=== PATIENT | female | born 1985 | race Two or more races ===

== ENCOUNTER → 2017-01-22 | Outpatient (CLI) | payer OTHER, MEDICAID ==
[~2017-01-22] VITALS: Ht 175.3 cm; Wt 136.5 kg
[~2017-01-22] MED LIST: PREN1TAB59 PO
--- NOTE | 2017-01-22 17:58 | DIREP ---
PROCEDURE:US BIOPHYSICAL PROFILE W/O NON STRESS COMPARISON:None. INDICATIONS:POST DATES FINDINGS: Breathing:Normal, 2. Movement:Normal, 2. Tone:Normal, 2. Fluid:Normal, 2. Summary Fetus Summary Estimated Weight:3863g Heart Rate:142 bpm Gestational Age (BPD):39 weeks, 0 days Gestational Age (HC):40 weeks, 0 days Gestational Age (AC):40 weeks, 2 days Gestational Age (FL):38 weeks, 1 day Amniotic Sac Amniotic Fluid Index:10.56 cm Pelvis and Uterus Cervix Length:3.89 cm EGA based on biometrics: 39 weeks 3 days Cervical Length: 3.9 cm ROSALIE: 10.6 cm Position: Cephalic Placental Location: Anterior Previa: None demonstrated. CONCLUSION: 1. Biophysical profile 05/20. 2. Single viable intrauterine gestation with biometrics corresponding to 39 week 3 day gestation. Dictated by: Jose Carrington M.D. on 01/22/2017 at 05:56 PM
== END | disposition home or self-care (01) ==
LOC: OPOB 16:42
PROVIDERS: ATTEND Hospitalist
DX: Z34.83 Encounter for supervision of other normal pregnancy, third trimester (principal); Z3A.39 39 weeks gestation of pregnancy
CPT/HCPCS: 59025; 76815; 76819

== ENCOUNTER → 2017-01-27 | Outpatient (CLI) | payer OTHER, MEDICAID ==
--- NOTE | 2017-01-27 13:17 | DIREP ---
PROCEDURE:US BIOPHYSICAL PROFILE W/O NON STRESS COMPARISON:[facility], , BIOPHYSICAL PROFILE W/O NON STRESS, 01/22/2017, 05:16 PM. INDICATIONS:O48.0 POST-TERM PRGE., O13.3 GESTATIONAL HTN THIRD TRIMESTER FINDINGS: Breathing:Normal, 2. Movement:Normal, 2. Tone:Normal, 2. Fluid:Normal, 2. NUMBER:Ann. POSITION:Cephalic. AMNIOTIC FLUID VOLUME:ROSALIE-12.0 cm. PLACENTA:Anterior. No evidence of previa. CERVIX:The cervix measures approximately 3.5 cm in length. The internal cervical os is closed. HEART RATE:131 beats per minute. BIPARIETAL DIAMETER:9.6 cm (39 weeks 3 days) HEAD CIRCUMFERENCE:34.5 cm (39 weeks 6 days) ABD CIRCUMFERENCE:37.0 cm (41 weeks 0 days) FEMUR LENGTH:7.6 cm (38 weeks 4 days) ESTIMATED WEIGHT:4002 g (8 lbs. 13 oz.) ULTRASOUND GA:39 weeks 5 days ULTRASOUND MELQUIADES:01/29/2017. anatomic survey was not performed. CONCLUSION: 1. Single intrauterine corresponding to an estimated gestational age of 39 weeks 5 days per biometrics. This does correlate well with the recent ultrasound, but does reflect a slight discrepancy from the reported clinical gestational age. The discrepancy is within the acceptable limits for normal variation. 2. Normal (8/8) biophysical profile. 3. Cephalic presentation. Anterior placenta. No evidence of previa. Normal ROSALIE. Dictated by: Horace Grubbs M.D. On 01/27/2017 at 01:16 PM
== END | disposition home or self-care (01) ==
LOC: RAD 11:37
PROVIDERS: ATTEND Hospitalist
DX: O48.0 Post-term pregnancy (principal); O13.3 Gestational [pregnancy-induced] hypertension without significant proteinuria, third trimester; Z3A.39 39 weeks gestation of pregnancy
CPT/HCPCS: 59025; 76815; 76819

== ENCOUNTER 2017-01-29 15:39 | Inpatient (IN) | payer OTHER, MEDICAID ==
[~2017-01-29] VITALS: Ht 172.7 cm; Wt 136.5 kg
[2017-01-29] MEDS ORDERED: BICITRA PO ONE (18:30)
[2017-01-29] MEDS ORDERED: XYLOCAINE PERINEUM SCH (18:30)
[2017-01-29 18:40] LABS: BASOPHIL % 0.3 % (0.0-0.2); EOSINOPHIL # 0.1 10^3/uL (0.0-0.2); EOSINOPHIL % 0.9 % (0.0-5.0); HEMATOCRIT 40.2 % (36.0-46.0); HEMOGLOBIN 13.9 g/dL (12.0-15.0); LYMPHOCYTES # 1.8 10^3/uL (1.0-4.8); LYMPHOCYTES % 14.3 % (24.0-44.0); MEAN CELL HGB 31.5 pg (26-34); MEAN CELL HGB CONCENTRATION 34.6 g/dL (33-37); MEAN CORP VOLUME 91.2 fL (78-100); MEAN PLATELET VOLUME 9.5 fL (7.8-11.0); MONOCYTES # 1.3 10^3/uL (0.3-0.8); MONOCYTES % 9.9 % (5.0-12.0); NEUTROPHIL # 9.5 10^3/uL (1.8-7.7); NEUTROPHILS % 74.2 % (41.0-85.0); RED CELL DISTRIBUTION WIDTH 12.9 % (11.5-14.5); WHITE BLOOD CELL 12.8 10^3/uL (4.5-11.0)
[2017-01-29] MEDS ORDERED: CERVIDIL VG STA (20:38)
[2017-01-30] MEDS ORDERED: ATARAX PO PRN (01:00)
[2017-01-30] MEDS ORDERED: LACTATED RINGERS 1,000 ML ONE (12:28)
[2017-01-30] MEDS ORDERED: LR/PITOCIN 500 ML IV ONE (12:28)
--- NOTE | 2017-01-30 13:59 | PCM.HP ---
OB - Chief Complaint & HPI Date of Admission: Date of Admission: Jan 29, 2017 at 15:39 Diagnosis This is a 31yo tall female EDC = 01/20/2017, with PNC with [facility], then subsequently (briefly) with Desiree Borrero LM, and now currently with Brenna Ty [facility], who was brought in for induction of labor last night at 41 2/ 7 weeks, with Cervidil. This is a patient who is comfortable in the midwifery model of care, not traditional Labor & Delivery. I was first introduced to this patient more than a week ago, when Brenna brought the patient to [facility] at 40 2/7 weeks on suspicion of pre-eclampsia (NST/BPP was performed). 24-hour urine was eventually performed, and it did not support the diagnosis of mild pre- eclampsia; the patient's later blood pressures at home, and currently here in the hospital, have been stable. Leyla was never placed on any anti- hypertensive medications. She decided she wanted to be induced yesterday, because she felt "something was wrong." FHR baseline has been reassuring here ( when the patient has allowed us to monitor her), and after 12 hours of Cervidil , the patient is having some contractions (which she is feeling). She is amenable to Pitocin if her contractions space out. She does not want me to perform amniotomy. Chief Complaint/History : 2 Para: 1 EDC: Jan 20, 2017 EGA: 41 3/7 Reason for admission: induction of labor Indication for induction: post dates (PT REQUEST) Admission Nurse Assessment Rev: Yes OB - History Hx of Present Care: Good Care Obstetrical Complications: None Medical Complications: None Other Concerns: The patient delivered a 9# female previously. Past Family/Social History * Past Medical, Surgical, Family and Obstetric Histories reviewed from chart. OB - Admission Exam Physical Exam HEENT: NCAT Lungs: Clear Abdomen: Gravid Extremities: Normal, Other (scars appreciated to right knee and right hand) Reflexes: Normal Cervical Dilatation: 1cm Effacement: 25% (30%) Station: -3 Membranes: Intact Heart Rate: 130's Accelerations: Accelerations Present Decelerations: No Decelerations Lens Edger Variability: Average (6-25) Contractions on Admission: None Intensity: Moderate (after Cervidil) Presentation: vtx OB - Assessment/Plan Assessment Assessment: induction of labor Plan Plan: Induction Induction Method: per Pitocin Protocol (Pt would feel more comfortable having the Pitocin start at 1mU/min rather than 2mU/min.) Other Plan Brenna Ty, the patient's table assembler metal, is going to serve as the patient's KNIFE CUTTER while Leyla goes through labor. VANESSA WATTS MD Jan 30, 2017 13:59
[2017-01-31] MEDS: LACTATED RINGERS 1,000 ML IV SCH ×3 (07:00→13:30)
[2017-01-31] MEDS ORDERED: LR/PITOCIN 500 ML IV ONE (07:10)
[2017-01-31] MEDS ORDERED: SUBLIMAZE ONE (07:17)
[2017-01-31] MEDS ORDERED: LACTATED RINGERS 1,000 ML ONE ×2 (07:20→13:36)
[2017-01-31] MEDS ORDERED: ZOFRAN ONE (18:07)
[2017-01-31] MEDS ORDERED: ZOFRAN IV ONE (18:14)
[2017-01-31] MEDS ORDERED: LIDOCAINE 1% VIAL ONE (19:20)
[2017-01-31] MEDS ORDERED: WATER ONE (19:20)
[2017-01-31] MEDS ORDERED: METHERGINE ONE (20:23)
--- NOTE | 2017-01-31 21:07 | PRM.DELNOT ---
Delivery Summary Delivery: Spont. Vaginal Delivery (@ 2020, nuchal cord X 1, terminal meconium) EBL: 200 Repair: 1 Degree (First degree vaginal/perineal, easily repaired with 2-0 Chromic in layers) Scores: 7 and 9 Sex of Infant: Female Weight (Grams): 3865 Presentation: vtx VANESSA WATTS MD Jan 31, 2017 21:07
[2017-01-31] MEDS ORDERED: TUCKS TP PRN (21:30)
[2017-01-31] MEDS ORDERED: TYLENOL PO PRN (21:30)
[2017-01-31] MEDS ORDERED: DERMOPLAST SPRAY TP PRN (21:30)
[2017-01-31] MEDS ORDERED: LR/PITOCIN 500 ML IV SCH (21:30)
[2017-01-31] MEDS ORDERED: LANOLIN HYDROUS TP PRN (21:30)
[2017-01-31] MEDS ORDERED: NORCO 5 MG PO PRN ×2 (21:30)
[2017-01-31] MEDS ORDERED: MOTRIN PO PRN (21:30)
[2017-01-31] MEDS ORDERED: MYLANTA PO PRN (21:30)
[2017-02-01] MEDS ORDERED: METHERGINE IM STA (00:57)
[2017-02-01 06:28] LABS: BASOPHIL % 0.2 % (0.0-0.2); EOSINOPHIL # 0.1 10^3/uL (0.0-0.2); EOSINOPHIL % 0.5 % (0.0-5.0); HEMATOCRIT 36.7 % (36.0-46.0); HEMOGLOBIN 12.4 g/dL (12.0-15.0); LYMPHOCYTES # 2.3 10^3/uL (1.0-4.8); LYMPHOCYTES % 12.6 % (24.0-44.0); MEAN CELL HGB 31.7 pg (26-34); MEAN CELL HGB CONCENTRATION 33.8 g/dL (33-37); MEAN CORP VOLUME 93.9 fL (78-100); MONOCYTES # 1.8 10^3/uL (0.3-0.8); MONOCYTES % 10.1 % (5.0-12.0); NEUTROPHIL # 13.6 10^3/uL (1.8-7.7); NEUTROPHILS % 76.4 % (41.0-85.0); RED CELL DISTRIBUTION WIDTH 12.9 % (11.5-14.5); WHITE BLOOD CELL 17.9 10^3/uL (4.5-11.0)
[2017-02-01] MEDS: CEPACOL SORE THROAT LOZENGE MM PRN ×2 (08:45→12:08)
[2017-02-01 10:04] VITALS: BP 118/63
--- NOTE | 2017-02-01 11:48 | PRM.DC ---
OB Discharge Summary Discharge Summary Discharge Diagnosis: Term IUP (Post-dates gestation in multip who wished to have a holistic experience--from induction of labor till delivery was clocked in at 41hours. Brenna Ty CPM is her associate store leader in [place], and provied PNC (after patient had been to [facility] and another critical access hospital-based associate store leader), however Brenna did act as a buddhist monk for much of the labor process. Pt did eventually get an epidural and received Pitocin maximum 14mU/min.) Vitals 118/63 blood pressure, 98.1F, 86 pulse Complications: No Complications Abnormal Lab Results Laboratory Tests Test 02/01/17 05:03 White Blood Count 17.910^3/uL Red Blood Count 3.9110^6/uL Hemoglobin 12.4g/dL Hematocrit 36.7% Mean Corpuscular Volume 93.9fL Mean Corpuscular Hemoglobin 31.7pg Mean Corpuscular Hemoglobin Concent 33.8g/dL Red Cell Distribution Width 12.9% Platelet Count 15048^3/uL Mean Platelet Volume 10.0fL Neutrophils (%) (Auto) 76.4% Lymphocytes (%) (Auto) 12.6% Monocytes (%) (Auto) 10.1% Neutrophils # (Auto) 13.610^3/uL Lymphocytes # (Auto) 2.310^3/uL Monocytes # (Auto) 1.810^3/uL Absolute Immature Granulocyte (auto 0.0410^3 u/L Eosinophils % 0.5% Basophils % 0.2% Basophils # 0.010^3/uL Eosinophil Count 0.110^3/uL Percent Immature Gran (Cell Imm) 0.20% Discharge Disposition: Stable Discharge Instructions: Pelvic Rest x 6 Weeks, Clinic F/U 1-2 Weeks (Pt will F/ U with Brenna Ty in [place], [place]), Regular Diet, Regular Activity, Call MD for Problems Additional Comments The outcome here was a cohesive blend of holistic and allopathic medical care. This patient was first brought to me over a week ago from [place], with her associate store leader Brenna Ty, on suspicion of mild pre-eclampsia, however 24-hour urine collection had effectively ruled this out. VANESSA WATTS MD Feb 01, 2017 11:48
[2017-02-01] MEDS ORDERED: COLACE PO SCH (21:00)
== END 2017-02-01 13:45 | disposition home or self-care (01) | DRG 774 ==
LOC: LND 15:39
PROVIDERS: ADMIT Hospitalist; ATTEND Hospitalist
PROC: 10E0XZZ Delivery of Products of Conception, External Approach (ICD-10-PCS; principal; 2017-01-31)
PROC: 0HQ9XZZ Repair Perineum Skin, External Approach (ICD-10-PCS; 2017-01-31)
PROC: 00HU33Z Insertion of Infusion Device into Spinal Canal, Percutaneous Approach (ICD-10-PCS; 2017-01-31)
PROC: 3E0R3CZ (ICD-10-PCS; 2017-01-31)
DX: O15.03 Eclampsia complicating pregnancy, third trimester (principal); O69.81X0 Labor and delivery complicated by cord around neck, without compression, not applicable or unspecified; O77.0 Labor and delivery complicated by meconium in amniotic fluid; Z37.0 Single live birth; Z3A.41 41 weeks gestation of pregnancy; O48.0 Post-term pregnancy; O70.0 First degree perineal laceration during delivery
CPT/HCPCS: 36415; 59025; 59400; 76815; 76819; 85025; 85027; 86900; 96372; J2001; J2210; J2405; J2590; J3010; J7120